=== PATIENT | female | born 1970 | race Asian ===

== ENCOUNTER 2024-01-22 17:01 | Inpatient (IN) | payer OTHER, SELFPAY ==
--- NOTE | 2024-01-22 17:27 | ED_ITS ---
HPI - Psych General Chief Complaint: Psychiatric Symptoms Stated Complaint: psych, sect 12, not safe at home Time Seen by Provider: 01/22/24 17:03 Source: patient and EMS Mode of arrival: EMS Limitations: other (hard to follow and at times does not make sense) History of Present Illness ED Provider: WILFREDO HPI Narrative: 53 yo female with remote hx of psych admission due to psychosis that they felt was brought on by sig THC use. She has been using THC regularly then increasing over the past month where the states she uses a bong every hours. 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 On arrival she is very manic appearing, talking loud, tangentional and they states my wifey knows things. She was very touchy with the paramedics as well. She hit the top of her head a couple of times and kept asking me if I took an oath. complaint: other Onset (ago): month(s) (1+) Duration: getting worse History of same: Yes Relieving factors: none Exacerbating factors: drug use Context: recent drug abuse Associated psychiatric symptoms: racing thoughts and delusions Associated symptoms: denies other symptoms Treatments prior to arrival: placed on mental health hold Related Data Home Medications ?Medication ?Instructions ?Recorded ?Confirmed No Known Home Meds 01/22/24 01/22/24 Allergies Allergy/AdvReac Type Severity Reaction Status Date / Time Sulfa (Sulfonamide Allergy Mild RASH Verified 01/22/24 17:33 Antibiotics) [SULFA (SULFONAMIDE ANTIBIOTICS)] Review of Systems Review of Systems: ROS unable to be obtained due to patient not being able to hold a conversation for long PMFSH Past Medical History Source: obtained from family Medical History Drug-induced psychotic disorder Social History Social History Alcohol intake: current Alcohol intake frequency: holidays/special occasions only Smoked in Last 30 Days: No Use of substances other than those prescribed or required for medical reasons: No Advance Directives: No Advance Directives Information Provided: No Patient : No Physical Exam Vital Signs: Vital Signs: Last Vital Signs Temp 97.4 F 12/03/24 17:29 Pulse 100 01/22/24 17:29 Resp 16 01/22/24 17:33 BP 149/91 H 01/22/24 17:29 Pulse Ox 100 01/22/24 17:29 O2 Del Method Room Air 01/22/24 17:29 BMI result Body Mass Index 21.6 Appearance: Alert. Oriented X3. No acute distress. laughing, going from subject to subject, hitting her head with her fist then giggling, came in naked with a towel. erratic behaviors Eyes: Pupils equal, round and reactive to light. ENT: Pharynx normal. Neck: Normal inspection. Neck supple. CVS: Normal heart rate and rhythm. Pulses normal. Respiratory: No respiratory distress. Breath sounds normal. Abdomen: Soft and nontender. Skin: Skin warm and dry. Normal skin color. Normal skin turgor. Extremities: No lower extremity edema. Neuro: Oriented X 3. No motor deficit. No sensory deficit. CN2-12 intact Course Course Course Narrative: S12 inpatient bed search per CARE team she is refusing labs Medical Decision Making Medical Decision Making MDM Narrative: 53 yo female with PMH of drug induced psychotic disorder here with at least a month of decompensation and heavily using THC which was a trigger for her in the past. She will need basic labs, UA, discussed with and confirmed hx of same in past and need for hospitalization Differential Diagnosis Differential Diagnoses: The differential diagnosis associated with the presentation includes drug induced psychosis Admission/Observation Consideration of admission/observation: Escalation of care including admission/observation considered physician observation started at 6pm Consult Healthcare Provider Management of the patient was discussed with: Behavioral Health Provider Independent Historian Clinical information obtained from an independent historian. History obtained from or confirmed by: Spouse and EMS Discharge Plan Discharge Clinical Impression: Acute psychosis Patient Disposition: Still a Patient Prescriptions: No Action No Known Home Meds Interventions: [place]-Suicide Risk Severity Scale Last Done: 01/22/24 17:34 Print Language: Kazakh
[2024-01-22 17:29] VITALS: BP 149/91; PULSE 100; RESP 14; TEMP 36.3; O2SAT 100; BMI 21.6
[2024-01-22 17:33] VITALS: RESP 16
--- NOTE | 2024-01-22 17:38 | PC.NURSE ---
Lizeth comes in from home today after family was reporting her acting bizarre with odd mannerisms at home. Per family (through EMS), pt acts in similar ways when she uses cannabis. Pt is calm and cooperative, unable to verbalize why she is here. She is difficult to follow at times, with a non-linear thought process. Pt Patient changed over by this RN, pt came to ED in just a towel because she was in the shower upon EMS arrival. Pt given a gown upon arrival and then fully changed with this RN in the bathroom.
--- NOTE | 2024-01-22 18:21 | PC.NURSE ---
Pt refusing to give up bracelet
--- NOTE | 2024-01-22 19:00 | PC.NURSE ---
patient appears to be resting comfortably in room awaiting blood draw. patient appears in no distress.
--- NOTE | 2024-01-22 19:07 | PC.NURSE ---
Pt uncooperative with blood draw at this time, HUGH Ayoub attempted to draw patient however, pt was unable to sit still so blood could be drawn safely. Plan for re-attempt, pt aware at this time
--- NOTE | 2024-01-22 19:09 | MHC.EDTECH ---
t/w approached pt to re attempt blood draw, pt continues to be uncooperative with lab work. pt requested to speak with RN and then speak with care team. will re approach at a later time.
--- NOTE | 2024-01-22 20:26 | PC.NURSE ---
patient exhibiting disorganized dramatic behavior, mildly pressured speech varying in pitch and tone ...bowing deeply when she talks to this com writer, some emphatic embellishments when she speaks (eg- requiring t/w to pronunciate partners name correctly, the full name), approached provider for medications, approached client for oral meds, declined. will continue observation
--- NOTE | 2024-01-22 21:33 | PC.NURSE ---
client moderately firm about not wanting her urine tested . after supported by security to procure urine (as a safety measure) urine was removed from her room and per patient request, t/w notified provider that keith desired an audience with provider regarding testing of sample
[2024-01-22 21:44] LABS: Appearance Urine Clear; Color Urine Yellow; Glucose Urine UA Negative (Negative); Leukocyte Esterase Urine Negative (Negative); Nitrite Urine Negative (Negative); Specific Gravity - Urine <= 1.005 (1.005-1.025); Urine Blood Negative (Negative); Urine Ketones Trace mg/dL (Negative); Urine Protein Negative (Neg-Trace)
[2024-01-22 21:53] LABS: Amphetamine Screen Urine Not Detected (Not Detect); Barbiturates, Urine Not Detected (Not Detect); Benzodiazepines Screen Urine Not Detected (Not Detect); Buprenorphine Scr Not Detected (Not Detect); Cannabinoid Screen Urine POSITIVE (Not Detect); Cocaine Screen Urine Not Detected (Not Detect); Fentanyl, urine Not Detected (Not Detect); Methadone Screen, Urine Not Detected (Not Detect); Opiate Screen Urine Not Detected (Not Detect); Oxycodone Screen Urine Not Detected (Not Detect); Phencyclidine Screen Urine Not Detected (Not Detect)
--- NOTE | 2024-01-23 00:35 | PC.NURSE ---
patient exhibiting more escalated behavior, loudly demanding things (water drinks) that have recently been p[rovided, limits set due to disruptive bx to unit
--- NOTE | 2024-01-23 00:41 | PC.NURSE ---
patient doing yoga poses next to her bed
--- NOTE | 2024-01-23 00:58 | PC.NURSE ---
t/w went to client to ask if she wanted a drink, i told her bc of the amounts she was drinking today i didnt want her to throw her eletrolytes off- client then wanted to discuss what was appropriate consumption with a condescending tone do you know what electrolytes are ? soon thereafter t/w completed the discussion. will try and provide a less stimulating environment.
--- NOTE | 2024-01-23 01:04 | PC.NURSE ---
for the last hour client has been fashioning unique garment which appear like a modified sarong about her waist and legs and not wearing the glo pants provided.
--- NOTE | 2024-01-23 01:24 | PC.NURSE ---
patient desired a chat with provider, message sent. patient declines vitals.
--- NOTE | 2024-01-23 01:45 | MHC.EDTECH ---
t/w approached pt to obtain labwork and vitals. 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 rn aware
--- NOTE | 2024-01-23 04:11 | PC.NURSE ---
patient requesting to make multiple phone calls, made aware no phone calls to be made until after 0700. patient continues to state all the creative art therapist/contacts that she needs to reach. reminded she may make these phone calls after 0700.
--- NOTE | 2024-01-23 04:55 | PC.NURSE ---
patient requesting to shower - told by staff to wait until after breakfast. patient spit in staff's face and promptly went back into room apologizing for actions. watching television at this time, continues to request phone calls to which patient is told to wait until 0700.
--- NOTE | 2024-01-23 06:58 | PC.NURSE ---
Assumed care of patient at 0645, patient appears to be in no apparent distress this am, ambulating with steady gait around [facility] pod asking to use phone. Pt aware of plan of care for inpatient bedsearch
--- NOTE | 2024-01-23 08:09 | PC.NURSE ---
Pt presenting with labile affect this am, occasionally yelling, coming out of her room to tell this RN I want you to call the mayor [facility], she can represent me as an special technical operations officer, however you cannot get her number as it is confidential, but please reach out to her on my behalf . Pt speaking with a non-linear thought process. Unable to maintain personal boundaries at this time, walked out of bathroom without clothes. Pt is redirectable verbally at this time
--- NOTE | 2024-01-23 08:40 | PHA.MEDREC ---
Pharmacy Consult ? Medication Reconciliation Pharmacy has reviewed the medication reconciliation done by nursing. Spoke to nurse Caraballo and confirmed that pt does not take any medications.
[2024-01-23 09:07] VITALS: PULSE 76; RESP 16; O2SAT 97
--- NOTE | 2024-01-23 09:16 | PC.NURSE ---
This RN approached patient to ask for blood work, pt states what blood work could you possibly need, I am in perfect health, I am physiologically balanced, I am in my correct headspace, I have no underlying conditions that could pose a threat to my health . This RN validated those statements but attempted to educate patient on the need for blood work for admission, pt continues to decline Once again, I am perfect health, thank you for caring about me however, I have no fever, no cough, my urine is clear and I feel just well, good day . And proceeded back to her room
--- NOTE | 2024-01-23 09:45 | PC.NURSE ---
Pt redirected with calming music at this time, resting on bed, respirations even and unlabored
[2024-01-23 10:00] VITALS: BP 163/98; PULSE 92; RESP 20; TEMP 37.1; O2SAT 99
[2024-01-23 12:02] LABS: UPreg QC Valid YES; Urine Pregnancy NEGATIVE (NEGATIVE)
[2024-01-23 12:27] VITALS: BP 140/98; PULSE 62; RESP 18; TEMP 36.7; O2SAT 99
--- NOTE | 2024-01-23 13:19 | PC.NURSE ---
Pt was provided with her lunch tray, she then sat on the floor and began eating in an animalistic way, digging her hands into her food, growling, and smearing food on the ground. Pt was verbally redirected, she apologized and cleaned up after herself. Pt becomes defensive at times, stating I was accepted into three medical schools, I am an excellent mother and yet you lock me in here like a slave
--- NOTE | 2024-01-23 18:01 | PC.ADMIT ---
Lizeth Fuentes is a 53 year old female that was admitted to from [facility] pod on a section 12b where she was transported by ambulance due to erratic and bizarre behavior, per , Lizeth had been smoking marijuana heavily prior to admission, according to Lizeth, it is for research purposes. Lizeth has no recent psych diagnosis or history, but a reported similar presentation post cannabis use many years ago. Lizeth was brought to the unit at 16:00, was cooperative with skin check which was unremarkable and was cooperative with some aspects of the admission process but declined multiple questions as she feels that her rights were violated and those who were concerned with her safety are the ones with a problem not her. Lizeth reports good sleep and appetite. Lizeth's speech is slightly pressured and hyper-verbal, her expressions and motions are exaggerated. She declined to sign a CV and remains on a section 12b. Lizeth refused to sign releases, was oriented to the unit. Lizeth is a non-smoker and has already received the flu vaccine this season, and is placed on 15 minute checks for safety.
[2024-01-23 20:00] VITALS: BP 132/73; PULSE 99; TEMP 36.6; O2SAT 100
[2024-01-24 07:00] VITALS: BMI 20.5
[2024-01-24 08:00] VITALS: BP 126/69; PULSE 77; TEMP 37.3; O2SAT 98
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
[2024-01-25 08:00] VITALS: BP 121/56; PULSE 52; TEMP 37.8; O2SAT 100
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
--- NOTE | 2024-01-25 14:43 | PC.NURSE ---
Lizeth was offered legal assistance information through [facility] and refused the information.
[2024-01-25 17:06] LABS: MANUAL DIFF FLAG NO
[2024-01-25 17:07] LABS: Basophils Percent Auto 0.4 % (0-2); Eosinophils Percent Auto 0.3 % (0-4); Hematocrit 42.1 % (37.0-47.0); Hemoglobin 14.5 g/dl (12.0-16.0); Imm Gran Abs Auto 0.03 X10*3/uL (0.00-0.03); Imm Gran Pct Auto 0.3 % (0.0-0.4); Lymphocytes Absolute Auto 1.8 X10*3/uL (1.2-4.9); Lymphocytes Percent Auto 15.7 % (20-40); Mean Corpuscular HGB Conc 34.4 g/dl (31.0-35.0); Mean Corpuscular Hemoglobin 30.3 pg (27.0-33.0); Mean Corpuscular Volume 87.9 fL (80.0-98.0); Mean Platelet Volume 9.6 fL (9.4-12.3); Monocytes Absolute Auto 0.8 X10*3/uL (0.1-1.2); Monocytes Percent Auto 6.8 % (2-11); Neutrophils Absolute Auto 8.7 x10*3/uL (2.0-8.3); Neutrophils Percent Auto 76.5 % (45-73); Platelet Count 324 X10*3/uL (160-400); Red Blood Count 4.79 X10*6/uL (4.20-5.50); Red Cell Distribution Width 12.5 % (11.0-16.0); White Blood Count 11.4 X10*3/uL (4.8-10.8)
[2024-01-25 17:28] LABS: Alanine Aminotransferase 27 U/L (0-31); Albumin Level 4.4 g/dL (3.5-5.0); Alkaline Phosphatase 76 U/L (39-117); Anion Gap 11 (12-20); Aspartate Amino Transferase 34 U/L (5-31); Bilirubin Total 0.5 mg/dL (0.0-1.0); Blood Urea Nitrogen 8 mg/dL (9-16); Calcium 9.6 mg/dL (8.4-10.2); Carbon Dioxide 28 mmol/L (22-29); Chloride 105 mmol/L (96-108); Cholesterol 146 mg/dL (<200); Creatinine Clr Calc Pharmacy 79.5; Estimated Glomerular Filt Rate > 60; Glucose Random 48 mg/dL (60-115); HDL Cholesterol 75 mg/dL (>40); LDL Cholesterol Calculated 51 mg/dL (<100); Potassium 3.1 mmol/L (3.3-5.1); Sodium 141 mmol/L (135-145); Total Protein 7.5 g/dL (6.5-8.0); Triglycerides 103 mg/dL (<150)
[2024-01-25 17:41] LABS: TSH reflex Free T4 1.38 uIU/mL (0.32-4.0)
[2024-01-25 20:00] VITALS: RESP 15
[2024-01-25 20:16] LABS: Reflex LDLD? No
[2024-01-25 20:50] LABS: Glucose, Whole Blood 121 mg/dL (60-115)
[2024-01-25] MEDS: QUEtiapine Fumarate 25 MG TABLET PO (21:15)
[2024-01-25 21:26] LABS: Appearance Urine Clear; Color Urine Yellow; Glucose Urine UA Negative (Negative); Leukocyte Esterase Urine Negative (Negative); Nitrite Urine Negative (Negative); PH 6.5 (5.0-9.0); Specific Gravity - Urine <= 1.005 (1.005-1.025); Urine Blood Negative (Negative); Urine Ketones Negative (Negative); Urine Protein Negative (Neg-Trace)
[2024-01-25 21:30] LABS: Bacteria Urine None Seen (None Seen); Hyaline Casts Urine 0-2 /LPF (0-2); RBC Urine 0-2 /HPF (0-2); Squamous Epithelial Cell Urine 0-2 /HPF (0-2); WBC Urine 0-5 /HPF (0-5)
--- NOTE | 2024-01-26 | ECG_ITS ---
Test Reason : reports recent CP; hypokalemia Blood Pressure : / mmHG Vent. Rate : 068 BPM Atrial Rate : 068 BPM P-R Int : 128 ms QRS Dur : 078 ms QT Int : 414 ms P-R-T Axes : 017 019 056 degrees QTc Int : 440 ms Normal sinus rhythm Normal ECG No previous ECGs available Referred By: Jaleel Wilson Electronically Signed By:Jonah Jenkins
[2024-01-26 08:00] VITALS: BP 134/81; PULSE 79; RESP 18; TEMP 36.2; O2SAT 98
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
[2024-01-26 15:57] LABS: Anion Gap 13 (12-20); Blood Urea Nitrogen 12 mg/dL (9-16); Calcium 9.8 mg/dL (8.4-10.2); Carbon Dioxide 26 mmol/L (22-29); Chloride 106 mmol/L (96-108); Creatinine Clr Calc Pharmacy 82.7; Estimated Glomerular Filt Rate > 60; Glucose Random 86 mg/dL (60-115); Potassium 4.4 mmol/L (3.3-5.1); Sodium 141 mmol/L (135-145)
[2024-01-26 16:04] LABS: Troponin-I High Sensitivity < 2.7 ng/L (<3.5-17.0)
[2024-01-26] MEDS: ARNICA 1 EACH PO (16:55)
[2024-01-26] MEDS: [UNRECOGNIZED DRUG - OTHER] 1 EACH PO (16:55)
[2024-01-26 20:00] VITALS: RESP 15
[2024-01-26] MEDS: LORazepam 1 MG TABLET PO (20:34)
[2024-01-26] MEDS: Divalproex Sodium ER 500 MG TAB.ER.24H PO (20:34)
[2024-01-26] MEDS: QUEtiapine Fumarate 100 MG TABLET PO (20:34)
[2024-01-27 06:47] LABS: Amphetamine Screen Urine Not Detected (Not Detect); Barbiturates, Urine Not Detected (Not Detect); Benzodiazepines Screen Urine Not Detected (Not Detect); Buprenorphine Scr Not Detected (Not Detect); Cannabinoid Screen Urine Not Detected (Not Detect); Cocaine Screen Urine Not Detected (Not Detect); Fentanyl, urine Not Detected (Not Detect); Methadone Screen, Urine Not Detected (Not Detect); Opiate Screen Urine Not Detected (Not Detect); Oxycodone Screen Urine Not Detected (Not Detect); Phencyclidine Screen Urine Not Detected (Not Detect)
[2024-01-27 08:00] VITALS: BP 121/77; PULSE 89; RESP 19; TEMP 36.6; O2SAT 98
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
[2024-01-27 20:00] VITALS: BP 150/78; PULSE 99; RESP 15; TEMP 36.6; O2SAT 100
[2024-01-27] MEDS: QUEtiapine Fumarate 100 MG TABLET PO (20:36)
[2024-01-27] MEDS: LORazepam 1 MG TABLET PO (20:36)
[2024-01-27] MEDS: Divalproex Sodium ER 500 MG TAB.ER.24H PO (20:36)
[2024-01-27 21:10] VITALS: BP 127/71; PULSE 96; RESP 14; O2SAT 100
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
[2024-01-28] MEDS: ARNICA 1 EACH PO (15:32)
[2024-01-28] MEDS: [UNRECOGNIZED DRUG - OTHER] 1 EACH PO (15:33)
[2024-01-28] MEDS: QUEtiapine Fumarate 100 MG TABLET PO (20:19)
[2024-01-28] MEDS: Divalproex Sodium ER 250 MG TAB.ER.24H 750 MG PO (20:19)
[2024-01-28] MEDS: LORazepam 1 MG TABLET PO (20:19)
--- NOTE | 2024-01-29 05:14 | PC.NURSE ---
Patient appears to have slept 8.5 hours with medication.
[2024-01-29 07:59] VITALS: BP 101/56; PULSE 87; RESP 18; TEMP 36.9; O2SAT 97
[2024-01-29 20:00] VITALS: BP 139/72; PULSE 121; RESP 18; TEMP 36.6; O2SAT 97
[2024-01-29] MEDS: QUEtiapine Fumarate 100 MG TABLET PO (20:37)
[2024-01-29] MEDS: LORazepam 1 MG TABLET PO (20:37)
[2024-01-29] MEDS: Divalproex Sodium ER 500 MG TAB.ER.24H PO (20:37)
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
--- NOTE | 2024-01-30 08:47 | P.DS_ITS ---
DS: Providers Provider Date of Service: 01/30/24 Date of admission: 01/23/24 11:47 Date of discharge: 01/30/24 Primary care physician: Viet Garcia MD Attending physician on admission: Jaleel Wilson Attending physician on discharge: Jaleel Wilson DS: Diagnosis Discharge Diagnosis (1) Bipolar I disorder: Status: Acute DS: Medications Discharge Medications Home Medications: Previous Rx's ?Medication ?Instructions ?Recorded lorazepam 1 mg tablet 1 mg PO BEDTIME 30 days #30 tabs 01/29/24 quetiapine 100 mg tablet 100 mg PO BEDTIME 30 days #30 tabs 01/29/24 divalproex 500 mg tablet,extended 500 mg PO BEDTIME 30 days #30 tabs 01/30/24 release 24 hr Data Data Completed and Pending Completed studies during hospitalization [Text1]: 01/22/24 01/25/24 01/25/24 21:34 15:46 19:02 WBC 11.4 H RBC 4.79 Hgb 14.5 Hct 42.1 MCV 87.9 MCH 30.3 MCHC 34.4 RDW 12.5 Plt Count 324 MPV 9.6 Immature Gran % (Auto) 0.3 Neut % (Auto) 76.5 H Lymph % (Auto) 15.7 L [place] % (Auto) 6.8 Eos % (Auto) 0.3 Baso % (Auto) 0.4 Lymph # (Auto) 1.8 [place] # (Auto) 0.8 Eos # (Auto) 0.0 Baso # (Auto) 0.0 Abs Immat Gran (auto) 0.03 Absolute Neuts (auto) 8.7 H Absolute Nucleated RBC 0.000 Nucleated RBC % (auto) 0.0 Sodium 141 Potassium 3.1 L Chloride 105 Carbon Dioxide 28 Anion Gap 11 L BUN 8 L Creatinine 0.76 Estim Creat Clear Calc 79.5 Estimated GFR > 60 POC Glucose Random Glucose 48 L* Calcium 9.6 Total Bilirubin 0.5 Direct Bilirubin AST 34 H ALT 27 Alkaline Phosphatase 76 Troponin I High Sens Total Protein 7.5 Albumin 4.4 Triglycerides 103 Cholesterol 146 LDL Cholesterol, Calc 51 HDL Cholesterol 75 TSH 1.38 Urine Color Yellow Urine Appearance Clear Urine pH 6.5 Ur Specific [place]cd[place] <= 1.005 Urine Protein Negative Urine Glucose (UA) Negative Urine Ketones Negative Urine Blood Negative Urine Nitrite Negative Ur Leukocyte Esterase Negative Urine RBC 0-2 Urine WBC 0-5 Ur Squamous Epith Cells 0-2 Urine Bacteria None Seen Hyaline Casts 0-2 Urine Test NEGATIVE Urine Opiates Screen Not Detected Ur Buprenorphine Scrn Not Detected Ur Oxycodone Screen Not Detected Urine Methadone Screen Not Detected Urine Fentanyl Screen Not Detected Ur Barbiturates Screen Not Detected Valproic Acid Ur Phencyclidine Scrn Not Detected Ur Amphetamines Screen Not Detected U Benzodiazepines Scrn Not Detected Urine Cocaine Screen Not Detected U Marijuana (THC) Screen Not Detected 01/25/24 01/26/24 01/30/24 20:46 15:27 08:22 WBC RBC Hgb Hct MCV MCH MCHC RDW Plt Count MPV Immature Gran % (Auto) Neut % (Auto) Lymph % (Auto) [place] % (Auto) Eos % (Auto) Baso % (Auto) Lymph # (Auto) [place] # (Auto) Eos # (Auto) Baso # (Auto) Abs Immat Gran (auto) Absolute Neuts (auto) Absolute Nucleated RBC Nucleated RBC % (auto) Sodium 141 Potassium 4.4 D Chloride 106 Carbon Dioxide 26 Anion Gap 13 BUN 12 Creatinine 0.73 Estim Creat Clear Calc 82.7 Estimated GFR > 60 POC Glucose 121 H Random Glucose 86 Calcium 9.8 Total Bilirubin Pending Direct Bilirubin Pending AST Pending ALT Pending Alkaline Phosphatase Pending Troponin I High Sens < 2.7 Total Protein Pending Albumin Pending Triglycerides Cholesterol LDL Cholesterol, Calc HDL Cholesterol TSH Urine Color Urine Appearance Urine pH Ur Specific [place] Urine Protein Urine Glucose (UA) Urine Ketones Urine Blood Urine Nitrite Ur Leukocyte Esterase Urine RBC Urine WBC Ur Squamous Epith Cells Urine Bacteria Hyaline Casts Urine Test Urine Opiates Screen Ur Buprenorphine Scrn Ur Oxycodone Screen Urine Methadone Screen Urine Fentanyl Screen Ur Barbiturates Screen Valproic Acid Pending Ur Phencyclidine Scrn Ur Amphetamines Screen U Benzodiazepines Scrn Urine Cocaine Screen U Marijuana (THC) Screen DS: Summary Hospital Course Hospital Course: Though some ambivalence about discontinuing cannabis completely, patient agrees to discontinue for the time being Time Spent with Patient Time attestation: Total time managing care of this patient today ____ minutes. Discharge Plan Discharge Anticipated Discharge Date/Time: 01/30/24 11:30 Patient Disposition: Home, Self-Care Discharge Diagnosis: Bipolar disorder Referrals: [facility]: Elizabteh Landin (therapy) [Other] - 02/01/24 11:00 am (Hospital Discharge appointment Initial diagnostic evaluation for therapy services. Appointment in person at [facility] in [place]. Please arrive 15 minutes prior to appointment to complete paperwork and bring copy of your insurance card. ) [facility]: Raoaide Bran (psychiatry) [Other] - 02/29/24 10:40 am (Hospital discharge appointment Initial psychiatric evaluation for psychiatric medication management Appointment will be by tele-health (telephone). Psychiatric provider will contact you at time of scheduled appointment.) [facility]: Mayra Sotomayor (psychiatry) [Other] - 03/27/24 11:00 am (Follow-up medication management appointment Appointment will be by tele-health (telephone). Psychiatric provider will contact you at time of scheduled appointment.) Viet Garcia MD [Primary Care Provider] - (Please follow up) Discharge Medications: New lorazepam 1 mg Tablet 1 mg PO BEDTIME 30 Days Qty: 30 0RF quetiapine 100 mg Tablet 100 mg PO BEDTIME 30 Days Qty: 30 0RF divalproex 500 mg Tablet Extended Release 24 Hr 500 mg PO BEDTIME 30 Days Qty: 30 0RF Discharge Orders: Discharge Order (Routine); Ordered 01/30/24 Ordered By: Jaleel Wilson Diet: Regular diet Activity on Discharge: As tolerated Stand Alone Forms: Patient Portal Discharge page, Community Support Print Language: Djiboutian Care Plan Goals: Maintain mood and safe behaviors Take medications as prescribed Practice coping skills Continue with outpatient providers and reach out to them as needed Health Concerns: Mood stability and behaviors Cannabis use Plan of Treatment: Follow up with your PCP, psychiatric provider and other outpatient providers regarding above concerns Take medications as prescribed Assessment: Risk assessment at time of discharge:? Patient was interviewed prior to discharge and found to be fully oriented and without any SI or HI. Patient has improved insight and judgment and wants to continue treatment. Patient is not in imminent risk of harm to self or others and has a safety plan that includes presenting to the closest ER or calling 911 if feeling unsafe.? Patient has been observed closely by nursing and unit staff throughout admission; patient has not engaged in any behaviors that suggest dangerousness to self or others and has demonstrated appropriate behaviors and impulse control
[2024-01-30 09:16] LABS: Valproate 35.9 mcg/mL (50.0-100.0)
[2024-01-30 09:19] LABS: Alanine Aminotransferase 27 U/L (0-31); Albumin Level 3.9 g/dL (3.5-5.0); Alkaline Phosphatase 82 U/L (39-117); Aspartate Amino Transferase 29 U/L (5-31); Bilirubin Direct 0.2 mg/dL (0.0-0.5); Bilirubin Total 0.5 mg/dL (0.0-1.0); Total Protein 7.3 g/dL (6.5-8.0)
[2024-01-30 09:24] VITALS: BP 113/70; PULSE 91; RESP 18; TEMP 36.9; O2SAT 98
[2024-01-30 09:39] LABS: Ammonia 37 umol/L (13-55)
[2024-01-30 10:32] LABS: Influenza A PCR NEGATIVE (Negative); Influenza B PCR NEGATIVE (Negative); Resp Syncy Virus RNA Qual PCR NEGATIVE (Negative); SARS COV2 PCR INHOUSE NEGATIVE (Negative)
== END 2024-01-30 11:48 | disposition home or self-care (01) | DRG 753 ==
LOC: HO.ED 01-23 09:35 → HO.PM5 01-23 12:31
PROVIDERS: Emergency Medicine; Admitting Provider Psychiatry & Neurology Psychiatry; Emergency Provider Emergency Medicine; PCP Family Medicine; Visit Provider Psychiatry & Neurology Psychiatry
DX: F31.9 Bipolar disorder, unspecified (principal); F43.10 Post-traumatic stress disorder, unspecified; Z20.822 Contact with and (suspected) exposure to COVID-19; Z79.899 Other long term (current) drug therapy; Z87.891 Personal history of nicotine dependence
CPT/HCPCS: 0241U; 36415; 80048; 80053; 80061; 80076; 80164; 80307; 81001; 81003; 81025; 82140; 82947; 84443; 84484; 85025; 93005; 99285

== ENCOUNTER 2024-01-23 11:47 | Outpatient (BNV) | payer OTHER, SELFPAY | END 2024-01-26 14:05 | PROVIDERS: Admitting Provider Psychiatry & Neurology Psychiatry; Emergency Provider Emergency Medicine; PCP Family Medicine; Visit Provider Internal Medicine Cardiovascular Disease | DX: R07.9 Chest pain, unspecified (principal) | CPT/HCPCS: 93010 ==

== ENCOUNTER → 2024-01-23 11:47 | Outpatient (BNV) | payer OTHER, SELFPAY | PROVIDERS: Admitting Provider Psychiatry & Neurology Psychiatry; Emergency Provider Emergency Medicine; PCP Family Medicine; Visit Provider Psychiatry & Neurology Psychiatry | DX: F31.13 Bipolar disorder, current episode manic without psychotic features, severe (principal) | CPT/HCPCS: 99232 ==